=== PATIENT | male | born 1945 | race Caucasian/White ===

== ENCOUNTER 2021-11-19 16:48 | Inpatient (IN) | payer MEDICARE ==
[~2021-11-19] VITALS: Ht 152.4 cm; Wt 107.3 kg
[2021-11-19 18:32] LABS: HEMOGLOBIN 10.1 gm/dl (14.0-17.5); RED BLOOD COUNT 3.33 M/UL (4.20-5.50); WHITE BLOOD COUNT 8.7 K/UL (4.5-11.0)
[2021-11-19] MEDS ORDERED: PLAVIX75 MG PO (19:25)
[2021-11-19] MEDS ORDERED: LASIX40 MG PO (19:25)
[2021-11-19] MEDS ORDERED: ENDOCET 10-3251 EACH PO (19:25)
[2021-11-19] MEDS ORDERED: FLOMAX 0.4 MG0.4 MG PO (19:26)
[2021-11-19] MEDS ORDERED: HYDRALAZINE HCL50 MG PO (19:26)
[2021-11-19] MEDS ORDERED: GLUCOTROL XL5 MG PO (19:27)
[2021-11-19] MEDS ORDERED: LANTUS100 UNIT/1 SQ (19:28)
[2021-11-19] MEDS ORDERED: PROTONIX40 MG PO (19:29)
[2021-11-19] MEDS ORDERED: HUMALOG100 UNIT/1 SQ (19:29)
[2021-11-19] MEDS ORDERED: VITAMIN B-121000 MCG PO (19:30)
[2021-11-19] MEDS ORDERED: NORVASC10 MG PO (19:30)
[2021-11-19] MEDS ORDERED: IRON325 M1 PO (19:31)
[2021-11-19] MEDS ORDERED: CARDURA2 MG PO (19:31)
[2021-11-19] MEDS ORDERED: ASPIRIN CHEWABL81 MG PO (19:31)
[2021-11-19] MEDS ORDERED: DULCOLAX5 MG PO (19:32)
[2021-11-19] MEDS ORDERED: DOCUSATE SODIU100 MG PO (19:32)
[2021-11-19] MEDS ORDERED: FLUOCINOLONE AC60 ML TP (19:34)
[2021-11-19] MEDS ORDERED: VITAMIN D21250 MCG PO (19:35)
[2021-11-19] MEDS ORDERED: OZEMPIC0.25 MG/0. SQ (19:42)
[2021-11-20 04:59] LABS: HEMOGLOBIN 10.3 gm/dl (14.0-17.5); RED BLOOD COUNT 3.41 M/UL (4.20-5.50); WHITE BLOOD COUNT 7.7 K/UL (4.5-11.0)
[2021-11-21 05:09] LABS: HEMOGLOBIN 10.2 gm/dl (14.0-17.5); RED BLOOD COUNT 3.37 M/UL (4.20-5.50); WHITE BLOOD COUNT 8.1 K/UL (4.5-11.0)
[2021-11-22 04:38] LABS: HEMOGLOBIN 10.2 gm/dl (14.0-17.5); RED BLOOD COUNT 3.34 M/UL (4.20-5.50); WHITE BLOOD COUNT 8.2 K/UL (4.5-11.0)
[2021-11-22 07:12] LABS: HBSAG SCREEN Negative (Negative); HEP A AB, IGM Negative (Negative); HEP B CORE AB, IGM Negative (Negative); HEP C VIRUS AB 0.1 (0.0-0.9)
[2021-11-23 04:57] LABS: HEMOGLOBIN 10.2 gm/dl (14.0-17.5); RED BLOOD COUNT 3.39 M/UL (4.20-5.50)
[2021-11-23 04:59] LABS: WHITE BLOOD COUNT 12.4 K/UL (4.5-11.0)
--- NOTE | 2021-11-23 15:00 | NUR ---
AGREE WITH PREVIOUS OUTCOMES MANAGER, ORIENTED PATIENT AND FAMILY TO ROOM AND FLOOR.
[2021-11-24 04:52] LABS: HEMOGLOBIN 10.4 gm/dl (14.0-17.5); RED BLOOD COUNT 3.47 M/UL (4.20-5.50); WHITE BLOOD COUNT 12.7 K/UL (4.5-11.0)
[2021-11-25 06:08] LABS: HEMOGLOBIN 11.4 gm/dl (14.0-17.5); RED BLOOD COUNT 3.76 M/UL (4.20-5.50); WHITE BLOOD COUNT 14.8 K/UL (4.5-11.0)
[2021-11-25 06:27] LABS: BUN/CREATININE RATIO 30 (0-10)
[2021-11-26 05:07] LABS: HEMOGLOBIN 11.1 gm/dl (14.0-17.5); RED BLOOD COUNT 3.69 M/UL (4.20-5.50); WHITE BLOOD COUNT 14.8 K/UL (4.5-11.0)
[2021-11-27 02:53] LABS: RED BLOOD COUNT 3.33 M/UL (4.20-5.50)
[2021-11-28 05:59] LABS: RED BLOOD COUNT 3.37 M/UL (4.20-5.50)
--- NOTE | 2021-11-29 01:01 | NUR ---
CHANGE IN PATIENT MENTAL STATUS SINCE START OF SHIFT. NOTIFIED DR. DE LA GARZA. ORDERS FOR ABG, CBC, CMP, AND CT OF HEAD W/O CONTRAST.
[2021-11-29 01:28] LABS: RED BLOOD COUNT 3.33 M/UL (4.20-5.50); WHITE BLOOD COUNT 10.7 K/UL (4.5-11.0)
--- NOTE | 2021-11-29 03:10 | NUR ---
NOTIFIED DR. DE LA GARZA OF ABG, CBC, CMP RESULTS. RECEIVED ORDER TO CHECK CHEST XRAY, PRO BNP, AND TO PUT PATIENT ON BIPAP 15/01.
--- NOTE | 2021-11-29 03:55 | NUR ---
ORDER FOR DEXTROSE AND INSULIN COMBO PER PHARMACY, PER DR. DE LA GARZA. CALLED NURSING HOME ASSISTANT AND PHARMACY TO ENSURE I UNDERSTOOD ORDER CORRECTLY. PHARMACY COMPLETED PHONE CALL TO DR. DE LA GARZA AND CLARIFIED. NURSING HOME ASSISTANT NOTIFIED. TAM JIMENEZ, WENT WITH ME TO VERIFY MEDICATION ADMINSTRATION. ORDER FOR 40 MG LASIX IVP JUST ORDERED, WILL ADMINISTER ONCE VERIFIED PER PHARMACY.
--- NOTE | 2021-11-29 10:00 | NUR ---
RN WAS PERFORMING MED PASS AND TALKING TO PATIENT'S FAMILY ON THE PHONE WHEN SHE HEARD A BED ALARM GOING OFF. RN WENT TO ROOM 4102 AND NOTED PATIENT LAYING IN THE FLOOR. RN ASKED PATIENT IF HE WAS INJURED AND PATIENT KEPT SAYING HE WANTED TO GET UP. RN CALLED FOR ASSISTANCE AND LATER A STAFF ASSIST WAS CALLED. PATIENT ROLLED HIMSELF OVER ONTO HIS BACK AND STAFF USED THE CRASH CART BOARD TO LIFT PATIENT BACK INTO BED. ONCE PATIENT WAS IN BED, HE NO LONGER RESPONDED TO VERBAL OR TACTILE STIMULI. STAFF CALLED AN SPACE OPERATIONS OFFICER AND LATER A CODE BLUE. DR. ARMSTRONG WAS NOTIFIED WELL DR. DUPREE, WHO WAS ADDED A CONSULT TO PATIENT'S CASE. MD ORDERED SCANS OF THE HEAD, NECK, CHEST, AND SEVERAL LAB DRAWS. STAFF ADMINISTERED EPINEPHRINE AT 1008, SINUS TACHYCARDIA 116 WAS NOTED AT 1011 AND A NORMAL SALINE BOLUS. 1012 BLOOD PRESSURE WAS 103/88 HEART RATE WAS 109 SINUS TACH. 1013 BLOOD PRESSURE WAS 151/68 AND HEART RATE WAS 108 SINUS TACH.AT 1014, 20 OF ATOMADATE WAS ADMINISTERED PER VERBAL MD ORDER. AT 1015 10 OF ATOMADATE WAS ADMINISTERED PER VERBAL MD ORDER. AT 1016 A 7.5 ET TUBE WAS INSERTED BY NURSING STAFF PER VERBAL MD ORDER. STAFF MAINTAINED PATIENT'S OXYGENATION STATUS UNTIL INSTRUCTION BY MD TO MOVE TO ICU. RN GAVE BEDSIDE REPORT TO [facility] AND LATER REPORT VIA TELEPHONE TO [facility]. PATIENT LEFT FLOOR WITH NURSING STAFF AND RESOURCE NURSE. MD, NETWORK SYSTEMS CONSULTANT, [employer] HAND, AND PATIENT'S FAMILY AWARE. RN OBSERVED THAT ALL FALL PREVENTIONS WERE IN PLACE AT TIME OF PATIENT FALL. BED ALARM WAS SOUNDING WHEN RN ENTERED ROOM INITIALLY.
[2021-11-29 10:39] LABS: HEMOGLOBIN 10.1 gm/dl (14.0-17.5); RED BLOOD COUNT 3.38 M/UL (4.20-5.50); WHITE BLOOD COUNT 12.1 K/UL (4.5-11.0)
[2021-11-30 04:27] LABS: HEMOGLOBIN 9.9 gm/dl (14.0-17.5); RED BLOOD COUNT 3.24 M/UL (4.20-5.50)
--- NOTE | 2021-11-30 18:23 | NUR ---
ATTEMPTING TO GAIN IV ACCESS DUE TO NEED FOR POSSIBLE WRIST RESTRAINTS. STUCK LEFT FORARM AND WHITE FLUID BEGAN TO POUR OUT. NOTIFIED DR. DUPREE. IV'S TO LEFT ARM D/C'D AND DR. DUPREE COMING TO PUT IN CENTRAL LINE.
[2021-12-01 04:10] LABS: RED BLOOD COUNT 3.32 M/UL (4.20-5.50)
--- NOTE | 2021-12-01 13:56 | NUR ---
18g x [address] in the right basilic vein. Aspirates and flushes well. US used to obtain venous access.
[2021-12-02 05:14] LABS: HEMOGLOBIN 9.8 gm/dl (14.0-17.5); RED BLOOD COUNT 3.21 M/UL (4.20-5.50); WHITE BLOOD COUNT 10.1 K/UL (4.5-11.0)
[2021-12-03 04:50] LABS: HEMOGLOBIN 9.5 gm/dl (14.0-17.5); RED BLOOD COUNT 3.15 M/UL (4.20-5.50); WHITE BLOOD COUNT 8.8 K/UL (4.5-11.0)
[2021-12-04 04:30] LABS: HEMOGLOBIN 9.9 gm/dl (14.0-17.5); RED BLOOD COUNT 3.28 M/UL (4.20-5.50); WHITE BLOOD COUNT 8.1 K/UL (4.5-11.0)
[2021-12-04 04:37] LABS: BUN/CREATININE RATIO 19 (0-10)
[2021-12-05 06:21] LABS: HEMOGLOBIN 9.1 gm/dl (14.0-17.5)
[2021-12-05 06:26] LABS: RED BLOOD COUNT 2.94 M/UL (4.20-5.50); WHITE BLOOD COUNT 5.8 K/UL (4.5-11.0)
[2021-12-06 05:35] LABS: HEMOGLOBIN 9.5 gm/dl (14.0-17.5); RED BLOOD COUNT 3.16 M/UL (4.20-5.50); WHITE BLOOD COUNT 5.3 K/UL (4.5-11.0)
[2021-12-08 06:16] LABS: HEMOGLOBIN 9.1 gm/dl (14.0-17.5); RED BLOOD COUNT 3.01 M/UL (4.20-5.50); WHITE BLOOD COUNT 5.1 K/UL (4.5-11.0)
[2021-12-10 06:57] LABS: HEMOGLOBIN 9.4 gm/dl (14.0-17.5); RED BLOOD COUNT 3.02 M/UL (4.20-5.50)
[2021-12-11 04:20] LABS: HEMOGLOBIN 9.3 gm/dl (14.0-17.5); RED BLOOD COUNT 3.06 M/UL (4.20-5.50); WHITE BLOOD COUNT 4.2 K/UL (4.5-11.0)
[2021-12-12 05:55] LABS: HEMOGLOBIN 9.3 gm/dl (14.0-17.5); RED BLOOD COUNT 3.08 M/UL (4.20-5.50); WHITE BLOOD COUNT 3.8 K/UL (4.5-11.0)
[2021-12-13 06:46] LABS: HEMOGLOBIN 9.1 gm/dl (14.0-17.5); RED BLOOD COUNT 3.02 M/UL (4.20-5.50)
[2021-12-13] MEDS ORDERED: LOPRESSOR 25 MG25 MG PO (09:05)
[2021-12-13] MEDS ORDERED: KEPPRA 500 MG500 MG PO (09:05)
--- NOTE | 2021-12-13 13:32 | NUR ---
PATIENT IS BEING DISCHARGED. HAS HOME O2 CONDEDNSER. PATIENT LIVES 2HRS AWAY. DID NOT BRING CONDENOR. PATIENT AND STATE PATIENT HASN'T BEEN WEARING O2 ALL THE TIME AND USES IT PRN AT HOME WELL. PATIENT WASN'T SET UP TO HAVE HOME O2 AND PROVIDER SAID HE DIDN'T NEED TO WEAR O2 ALL THE TIME. PATIENT INSISTS ON LEAVING WITHOUT O2. PATIENT BECAME AGITATED AND THREATENED TO LEAVE AMA IF NOT ALLOWED TO LEAVE WITHOUT PRN O2.
== END 2021-12-13 13:48 | disposition home or self-care (01) | DRG 208 ==
LOC: CCU 16:48 → MED SURG 4 17:28 → CCU 17:28 → MED SURG 4 11-23 15:00 → CCU 11-29 10:35 → MED SURG 4 12-06 10:06
PROVIDERS: Internal Medicine; Internal Medicine Critical Care Medicine; Internal Medicine Nephrology; Internal Medicine Pulmonary Disease; ADMIT Internal Medicine
PROC: 3E043XZ Introduction of Vasopressor into Central Vein, Percutaneous Approach (ICD-10-PCS; 2021-11-19)
PROC: 5A1945Z Respiratory Ventilation, 24-96 Consecutive Hours (ICD-10-PCS; 2021-11-19)
PROC: B24BZZZ Ultrasonography of Heart with Aorta (ICD-10-PCS; 2021-11-20)
PROC: 4A10X4Z Monitoring of Central Nervous Electrical Activity, External Approach (ICD-10-PCS; 2021-11-22)
PROC: 5A09357 Assistance with Respiratory Ventilation, Less than 24 Consecutive Hours, Continuous Positive Airway Pressure (ICD-10-PCS; 2021-11-22)
PROC: 5A09357 Assistance with Respiratory Ventilation, Less than 24 Consecutive Hours, Continuous Positive Airway Pressure (ICD-10-PCS; 2021-11-25)
PROC: 5A09357 Assistance with Respiratory Ventilation, Less than 24 Consecutive Hours, Continuous Positive Airway Pressure (ICD-10-PCS; 2021-11-26)
PROC: 5A09357 Assistance with Respiratory Ventilation, Less than 24 Consecutive Hours, Continuous Positive Airway Pressure (ICD-10-PCS; 2021-11-27)
PROC: 5A09357 Assistance with Respiratory Ventilation, Less than 24 Consecutive Hours, Continuous Positive Airway Pressure (ICD-10-PCS; 2021-11-28)
PROC: 0BH17EZ Insertion of Endotracheal Airway into Trachea, Via Natural or Artificial Opening (ICD-10-PCS; principal; 2021-11-29)
PROC: 5A1945Z Respiratory Ventilation, 24-96 Consecutive Hours (ICD-10-PCS; 2021-11-29)
PROC: 5A12012 Performance of Cardiac Output, Single, Manual (ICD-10-PCS; 2021-11-29)
PROC: 5A09357 Assistance with Respiratory Ventilation, Less than 24 Consecutive Hours, Continuous Positive Airway Pressure (ICD-10-PCS; 2021-11-29)
PROC: 5A09357 Assistance with Respiratory Ventilation, Less than 24 Consecutive Hours, Continuous Positive Airway Pressure (ICD-10-PCS; 2021-12-01)
PROC: 5A09357 Assistance with Respiratory Ventilation, Less than 24 Consecutive Hours, Continuous Positive Airway Pressure (ICD-10-PCS; 2021-12-02)
PROC: 5A09357 Assistance with Respiratory Ventilation, Less than 24 Consecutive Hours, Continuous Positive Airway Pressure (ICD-10-PCS; 2021-12-04)
DX: J96.01 Acute respiratory failure with hypoxia (principal); J18.9 Pneumonia, unspecified organism; Z20.822 Contact with and (suspected) exposure to COVID-19; I46.9 Cardiac arrest, cause unspecified; I63.9 Cerebral infarction, unspecified; I50.33 Acute on chronic diastolic (congestive) heart failure; G93.41 Metabolic encephalopathy; N17.9 Acute kidney failure, unspecified; J44.0 Chronic obstructive pulmonary disease with (acute) lower respiratory infection; I13.0 Hypertensive heart and chronic kidney disease with heart failure and stage 1 through stage 4 chronic kidney disease, or unspecified chronic kidney disease; E87.3 Alkalosis; J44.1 Chronic obstructive pulmonary disease with (acute) exacerbation; Z99.11 Dependence on respirator [ventilator] status; I65.29 Occlusion and stenosis of unspecified carotid artery; E11.51 Type 2 diabetes mellitus with diabetic peripheral angiopathy without gangrene; I73.9 Peripheral vascular disease, unspecified; Z96.619 Presence of unspecified artificial shoulder joint; Z96.659 Presence of unspecified artificial knee joint; E53.8 Deficiency of other specified B group vitamins; E66.01 Morbid (severe) obesity due to excess calories; R31.0 Gross hematuria; E78.5 Hyperlipidemia, unspecified; E11.22 Type 2 diabetes mellitus with diabetic chronic kidney disease; N18.32 Chronic kidney disease, stage 3b; M54.9 Dorsalgia, unspecified; G89.29 Other chronic pain; R00.1 Bradycardia, unspecified; R13.10 Dysphagia, unspecified; E87.5 Hyperkalemia; I16.0 Hypertensive urgency; R45.1 Restlessness and agitation; I25.10 Atherosclerotic heart disease of native coronary artery without angina pectoris; G40.909 Epilepsy, unspecified, not intractable, without status epilepticus; E11.65 Type 2 diabetes mellitus with hyperglycemia; R53.81 Other malaise; E87.6 Hypokalemia; I44.0 Atrioventricular block, first degree; H91.90 Unspecified hearing loss, unspecified ear; Z99.81 Dependence on supplemental oxygen; Y93.9 Activity, unspecified; Z95.1 Presence of aortocoronary bypass graft; Z90.49 Acquired absence of other specified parts of digestive tract; Z98.890 Other specified postprocedural states; Z88.0 Allergy status to penicillin; Z88.8 Allergy status to other drugs, medicaments and biological substances; Z79.899 Other long term (current) drug therapy; Z79.82 Long term (current) use of aspirin; Z87.891 Personal history of nicotine dependence; Z82.49 Family history of ischemic heart disease and other diseases of the circulatory system; Z79.01 Long term (current) use of anticoagulants; Z91.041 Radiographic dye allergy status; Z68.39 Body mass index [BMI] 39.0-39.9, adult
CPT/HCPCS: ECHO; 31500; 36415; 36600; 70450; 70490; 70544; 70551; 71045; 74018; 74230; 76705; 80048; 80053; 80074; 80202; 81001; 82550; 82553; 82570; 82728; 82803; 82962; 83036; 83540; 83550; 83605; 83735; 83880; 84100; 84132; 84156; 84300; 84439; 84443; 84484; 85025; 85027; 85379; 85610; 85730; 86140; 87040; 87070; 87081; 87205; 92526; 92610; 92611-GN; 93005; 93306; 93880; 93970; 93971; 94002; 94003; 94640; 94660; 94664; 94760; 95819; 97110; 97110-GP-CQ; 97116-GP-CQ; 97162; 97164; 97166; 97530; 97530-GP-CQ; A6212; C1751; C9113; J0171; J0360; J1120; J1205; J1630; J1644; J1940; J1953; J1956; J2185; J2250; J2704; J2920; J3370; J7030; J7070; Q9957